=== PATIENT | female | born 1950 | race Caucasian/White ===

== ENCOUNTER 2022-05-26 09:46 | Inpatient (IN) | payer MEDICARE, BC ==
[2022-05-26] MEDS ORDERED: fentaNYL 50 MCG/ML SDV IVPUSH ONE (10:40)
[2022-05-26] MEDS ORDERED: Sodium Chloride 0.9% 10 ML Syringe FLUSH PRN (10:41)
[2022-05-26] MEDS ORDERED: Sodium Chloride 0.9% 1,000 ML IV SCH (10:45)
[2022-05-26] MEDS ORDERED: Haloperidol Lactate 5 MG/ML SDV IM ONE (11:05)
[2022-05-26] MEDS ORDERED: fentaNYL 50 MCG/ML SDV IM ONE (11:06)
[2022-05-26] MEDS ORDERED: LORazepam 2 MG/ML SDV IM ONE (11:20)
[2022-05-26] MEDS ORDERED: Haloperidol Lactate 5 MG/ML SDV IVPUSH ONE (11:48)
[2022-05-26] MEDS ORDERED: LORazepam 2 MG/ML SDV IVPUSH ONE (11:48)
[2022-05-26 12:38] LABS: ESTIMATED GFR 34 mL/min (>60)
[2022-05-26] MEDS ORDERED: Ciprofloxacin in D5W 400 MG in Premix Bag 1 BAG IV ONE ×2 (13:22)
[2022-05-26] MEDS ORDERED: Midazolam 1 MG/ML 2 ML SDV IVPUSH ONE ×2 (14:34→15:16)
[2022-05-26] MEDS ORDERED: Folic Acid 50 MG/10 ML MDV IV SCH (15:00)
[2022-05-26] MEDS ORDERED: Ondansetron 4 MG Tab.DIS PO PRN (17:10)
[2022-05-26] MEDS ORDERED: Ondansetron 4 MG/2 ML SDV IV PRN (17:10)
[2022-05-26] MEDS ORDERED: Albuterol 0.083% 2.5 MG/3 ML Neb Soln NEB PRN (17:10)
[2022-05-26] MEDS ORDERED: Haloperidol Lactate 5 MG/ML SDV IVPUSH PRN (17:10)
[2022-05-26] MEDS ORDERED: Acetaminophen 325 MG Tab PO PRN (17:10)
[2022-05-26] MEDS ORDERED: LORazepam 2 MG/ML SDV IVPUSH PRN (17:10)
[2022-05-26] MEDS ORDERED: Acetaminophen 650 MG Supp RECTAL PRN (17:10)
[2022-05-26] MEDS ORDERED: Albumin Human 25 GM in Premix Bag 1 BAG IV ONE (17:30)
[2022-05-26] MEDS: Magnesium Sulfate/Water 2 GM in Premix Bag 1 BAG IV SCH ×2 (18:00→23:14)
[2022-05-26] MEDS: Dextrose 5%-0.9% NaCl with KCl 1,000 ML IV SCH (18:00)
[2022-05-26] MEDS: HYDROmorphone 1 MG/ML Syringe IVPUSH PRN (19:29)
[2022-05-26] MEDS: Melatonin 3 MG Tab PO SCH (20:07)
[2022-05-26] MEDS: Lactobacillus Rhamnosus GG (Probiotic) Cap PO SCH (20:07)
[2022-05-26] MEDS: cefTRIAXone 1 GM in Sodium Chloride 0.9% 50 ML IV SCH (21:34)
[2022-05-27] MEDS: Dextrose 5%-0.9% NaCl with KCl 1,000 ML IV SCH ×2 (06:43→16:49)
[2022-05-27] MEDS: HYDROmorphone 1 MG/ML Syringe IVPUSH PRN (07:18)
[2022-05-27] MEDS: Lactobacillus Rhamnosus GG (Probiotic) Cap PO SCH ×2 (08:31→20:49)
[2022-05-27] MEDS: Enoxaparin 100 MG/1 ML Syringe SUBCUT SCH (08:34)
[2022-05-27] MEDS ORDERED: LORazepam 2 MG/ML SDV IVPUSH PRN (13:43)
[2022-05-27] MEDS: HYDROmorphone 0.5 MG/0.5 ML Syringe IVPUSH PRN ×2 (14:15→21:50)
[2022-05-27] MEDS: Melatonin 3 MG Tab PO SCH (20:49)
[2022-05-27] MEDS: cefTRIAXone 1 GM in Sodium Chloride 0.9% 50 ML IV SCH (21:06)
[2022-05-28] MEDS: HYDROmorphone 0.5 MG/0.5 ML Syringe IVPUSH PRN ×3 (00:38→08:22)
[2022-05-28] MEDS: Dextrose 5%-0.9% NaCl with KCl 1,000 ML IV SCH (03:00)
[2022-05-28 05:01] LABS: ESTIMATED GFR 37 mL/min (>60)
[2022-05-28] MEDS: Enoxaparin 100 MG/1 ML Syringe SUBCUT SCH (09:07)
[2022-05-28] MEDS: Lactobacillus Rhamnosus GG (Probiotic) Cap PO SCH (09:07)
[2022-05-28] MEDS ORDERED: LORazepam ORAL Concentrate 1MG/0.5ML U/D PO PRN ×2 (10:24→15:02)
[2022-05-28] MEDS: Morphine 10 MG/0.5 ML Oral Syringe PO PRN ×4 (11:12→21:08)
[2022-05-28] MEDS ORDERED: Morphine 10 MG/0.5 ML Oral Syringe PO PRN (15:02)
[2022-05-28] MEDS ORDERED: HYDROmorphone 1 MG/ML Syringe IVPUSH ONE (15:54)
[2022-05-29] MEDS: Morphine 10 MG/0.5 ML Oral Syringe PO PRN (00:23)
[2022-05-29] MEDS ORDERED: Atropine Sulfate Ophth 2 ML Drops SL PRN (10:52)
== END 2022-05-31 00:21 | disposition expired | DRG 682 ==
LOC: JP.ED 09:46 → JP.MS 16:27
PROVIDERS: ADMIT Internal Medicine; ATTEND Hospitalist
DX: N17.9 Acute kidney failure, unspecified (principal); I26.99 Other pulmonary embolism without acute cor pulmonale; C49.9 Malignant neoplasm of connective and soft tissue, unspecified; R53.1 Weakness; C78.6 Secondary malignant neoplasm of retroperitoneum and peritoneum; C79.9 Secondary malignant neoplasm of unspecified site; N30.00 Acute cystitis without hematuria; Z51.5 Encounter for palliative care; Z66 Do not resuscitate; K74.60 Unspecified cirrhosis of liver; R45.1 Restlessness and agitation; E88.09 Other disorders of plasma-protein metabolism, not elsewhere classified; E86.0 Dehydration; Z20.822 Contact with and (suspected) exposure to COVID-19; J45.909 Unspecified asthma, uncomplicated; R32 Unspecified urinary incontinence; I10 Essential (primary) hypertension; R31.9 Hematuria, unspecified; R41.0 Disorientation, unspecified; Z86.16 Personal history of COVID-19; Z79.899 Other long term (current) drug therapy; Z88.0 Allergy status to penicillin; Z86.19 Personal history of other infectious and parasitic diseases; Z90.710 Acquired absence of both cervix and uterus
CPT/HCPCS: 36415; 51702; 70450; 70450-26; 80048; 80053; 81001; 82140; 82607; 82746; 83605; 83735; 84145; 85025; 85027; 85610; 85730; 86140; 86850; 86900; 86901; 87086; 87088; 87186; 96361; 96365; 96372; 96375; 96376; 99285-25; A9270-GY; J0696; J0744; J1170; J1630; J1650; J2060; J2250; J3010; J3475; J3480; J3490; J7030; P9047; U0002